=== PATIENT | male | born 1995 | race Caucasian/White ===

== ENCOUNTER 2024-06-15 19:32 | Outpatient (CLI) | payer OTHER | END 2024-06-15 19:33 | disposition home or self-care (01) | LOC: SC 19:32 | PROVIDERS: ATTEND Nurse Practitioner Family | DX: G47.10 Hypersomnia, unspecified (principal); G47.8 Other sleep disorders | CPT/HCPCS: 95810 ==

== ENCOUNTER 2024-07-02 14:25 | Outpatient (CLI) | payer OTHER ==
[2024-07-02 14:42] VITALS: BP 129/78; O2SAT 98
--- NOTE | 2024-07-02 14:44 | SLEEP CARE CONSULTATION ---
Information from patient questionnaire entered by Abdelrahman Crouch. I have reviewed and concur with the information entered by Abdelrahman Crouch. This document represents the service I personally performed and the decisions made by , Ericka Shah ARNP. History of Present Illness Service Date and Time: 07/02/2024 1425 Initial Davis Sleepiness Scale score: 5 (03/30/24) Current Davis Sleepiness Scale score: 9 (07/02/24) Additional HPI information: BEN BARTH returns for follow up and results of the recently performed polysomnography done on 06/15/24. The patient was informed of the following findings: No significant sleep disordered breathing with an average AHI of 0.2 and karmen oxygen saturation of 92%. I explained the pathophysiology behind obstructive sleep apnea. Patient does not have sleep apnea and was advised how weight gain could increase the risk of developing sleep apnea in the future. Patient was cautioned about risks of drowsy driving until sleepiness symptoms resolve. Sleep Study - Results Type of Sleep Study: Polysomnography Prior sleep studies: No Polysomnography/Home Sleep Study results: IMPRESSION: The quality of the study is good. The patient had normal sleep efficiency. The sleep architecture was relatively normal considering the first-night effect. Respiratory monitoring showed no significant sleep disordered breathing (AHI = 0.2) or hypoxia (karmen oxygen saturation of 92%). The patient did not sleep supine during this study. No audible snore. There was no significant periodic leg movement of sleep. Cardiac rhythm was normal sinus rhythm without significant arrhythmia. No abnormal behavior (parasomnia) observed during the night. Allergies and Home Medications Known drug allergies: Yes (as listed) Drug allergies reviewed: Yes Home medication list reviewed: Yes (no changes) Allergy and home medication list: Allergies Penicillins Allergy Review of Systems Review of systems same as previous: Yes (no changes) Physical Exam Vital signs obtained and entered by: Ericka Diamond NP Blood Pressure: 129/78 Cuff size: regular (left arm) Heart Rate: 80 O2 Saturation: 98 Height: 6 ft 1.25 in Weight: 154 lb 3.2 oz Body Mass Index: 20.2 BMI Classification: Normal Impression and Plan 1. Fatigue, unspecified. He is here for follow-up of his sleep study which showed no sleep disordered breathing, significant upper airway resistance, snoring or periodic leg movements fragmenting his sleep. He says he continues to wake up multiple times a night for no apparent reasons. He denies having significant anxiety or depression issues that are affecting his sleep. I advised him to follow-up with his primary care for further evaluation and treatment as needed for his daytime fatigue. * Followup with PCP for daytime fatigue * The patient is cautioned about driving until sleepiness is completely resolved. * Return as needed for follow up. Follow up with Sleep Care in: as needed Follow up with: PCP Visit Type: In Office Time Spent with Patient (minutes): 16 Provider Statement: I spent 100% of the Face to Face Visit with the patient with greater than 50% spent counseling the patient and coordination of care.
== END 2024-07-02 14:26 | disposition home or self-care (01) ==
LOC: SC 14:25
PROVIDERS: ATTEND Nurse Practitioner Family
DX: R53.83 Other fatigue (principal)
CPT/HCPCS: 99212